=== PATIENT | male | born 1980 | race Caucasian/White ===

== ENCOUNTER 2024-10-04 19:03 | Emergency (ER) | payer SELFPAY ==
[~2024-10-04] VITALS: Ht 182.9 cm; Wt 113.4 kg
[2024-10-04] MEDS ORDERED: Lidocaine/Tetracaine/Epinephr 3 ML GEL SYRINGE TOP ONE (19:30)
== END 2024-10-04 20:11 | disposition home or self-care (01) ==
LOC: ER 19:03
DX: S01.81XA Laceration without foreign body of other part of head, initial encounter (principal); W26.9XXA Contact with unspecified sharp object(s), initial encounter
CPT/HCPCS: 12013; 99282-25

== ENCOUNTER 2024-12-06 14:10 | Emergency (ER) | payer SELFPAY ==
[~2024-12-06] VITALS: Ht 182.9 cm; Wt 112.5 kg
[2024-12-06] MEDS ORDERED: Ketorolac Tromethamine 15mg Vial IM ONE (15:50)
== END 2024-12-06 17:17 | disposition home or self-care (01) ==
LOC: ER 14:10
DX: M25.572 Pain in left ankle and joints of left foot (principal)
CPT/HCPCS: 73610; 93971; 96372; 99284-25; J1885

== ENCOUNTER 2025-05-08 18:10 | Emergency (ER) | payer OTHER ==
[~2025-05-08] VITALS: Ht 182.9 cm; Wt 122.5 kg
[2025-05-08] MEDS ORDERED: CEPH500 PO (18:50)
== END 2025-05-09 00:15 | disposition home or self-care (01) ==
LOC: ER 18:10
DX: L03.115 Cellulitis of right lower limb (principal); Z59.89 Other problems related to housing and economic circumstances; Z79.2 Long term (current) use of antibiotics
CPT/HCPCS: 87070; 87075; 87147; 87205; 99283; A9270